=== PATIENT | male | born 1935 | race Caucasian/White ===

== ENCOUNTER 2021-06-19 08:46 | Inpatient (IN) | payer OTHER, BC ==
[~2021-06-19] VITALS: Ht 162.6 cm; Wt 104.0 kg
[2021-06-19 11:20] VITALS: BP 110/66
--- NOTE | 2021-06-19 11:35 | NUR ---
ADMIT: PT ARRIVED TO UNIT APPROX 0820 FROM [facility]. PT A&OX4, ON 2L VIA NC (BASELINE) AND UNABLE TO AMBULATE BY SELF/WC BOUND. PT HAD SMALL BLOOD CLOTS AND MODERATE AMOUNT OF BLOOD RESIDUE AROUND PENIS AREA. PT STATES PAIN, BUT TOLERABLE AT TIME OF ADMIT. VITAL SIGNS STABLE. THIS RN CONTACTED DAUGHTER KEV, BUT WAS UNABLE TO GET PT [place] ON PHONE. VERIFIED CONTACT NUMBER WITH [facility]. PER UROLOGY, ATTEMPT WILL NEED TO BE MADE BY NURSING STAFF TO PLACE COUDE CATH AND HAVE CYSTO CART UP TO UNIT.
--- NOTE | 2021-06-19 11:46 | EKG ---
[place] [address] [facility] [place] [place] [address] ELECTROCARDIOGRAM REPORT Name: YASMEEN FIELD Room #: 364-P ADM IN M.R.#: [id number] Admission: 06/19/21 Attend Phys: Jonatan Ramos MD Discharge: Date of : 39 Report #: [id number] [facility] Test Date: 2021-06-19 Test Time: 10:49:37 Pat Name: YASMEEN FIELD Department: Room: 364 P Gender: M Gas Dispatcher: FRANCISCA : 1935 Requested By: Cordelia De La Paz Order Number: [id number] MD: Harinder Mercer Measurements Intervals [place] Rate: 62 P: 44 UT: 172 QRS: 1 QRSD: 93 T: 8 QT: 485 QTc: 493 Interpretive Statements Sinus rhythm Abnormal R-wave progression, early transition Borderline prolonged QT interval Baseline wander in lead(s) V1,V5 No previous ECG available for comparison Electronically Signed On 06-19-2021 11:46:26 CDT by Harinder Mercer [email or web address] <ELECTRONICALLY SIGNED> By: Harinder Mercer MD, [facility] 06/19/21 1146 1049 1049 Harinder Mercer MD, FAC /EPI
[2021-06-19 12:21] LABS: ALBUMIN 2.7 g/dL (3.4-5.0); ANION GAP 12 mmol/L (7-16); BUN 26 mg/dL (7-18); CALCIUM 8.1 mg/dL (8.5-10.1); CHLORIDE 104 mmol/L (98-107); CHOLESTEROL 146 mg/dL (<200); CO2 23 mmol/L (21-32); CREATININE 1.9 mg/dL (0.7-1.3); GLUCOSE 88 mg/dL (74-106); HDL CHOLESTEROL 31 mg/dL (>40); LDL CHOLESTEROL 89 mg/dL (<100); POTASSIUM 4.5 mmol/L (3.5-5.1); SGOT 27 U/L (15-37); SGPT 13 U/L (30-65); SODIUM 139 mmol/L (136-145); TC:HDL 4.7 Ratio (Not establshd); TOTAL BILIRUBIN 0.8 mg/dL (0.2-1.0); TOTAL PROTEIN 6.2 g/dL (6.4-8.2); TRIGLYCERIDE 134 mg/dL (<150); VLDL 27 mg/dL (<40)
--- NOTE | 2021-06-19 13:13 | NUR ---
PER PHARMACY, WILL DC VANC DUE TO CREAT LEVEL.
[2021-06-19 13:51] LABS: URINE BILIRUBIN NEGATIVE (Negative); URINE BLOOD 3+ (Negative); URINE GLUCOSE-RANDOM* NEGATIVE (Negative); URINE KETONES NEGATIVE (Negative); URINE LEUKOCYTES-REFLEX TRACE (Negative); URINE NITRITE-REFLEX POSITIVE (Negative); URINE PROTEIN (DIPSTICK) 3+ (Negative); URINE SPECIFIC GRAVITY 1.015 (1.005-1.035); URINE UROBILINOGEN 0.2 E.U./dl (0.2-1.0)
[2021-06-19 13:52] LABS: URINE CLARITY CLOUDY; URINE COLOR RED
[2021-06-19 13:53] LABS: SQUAMOUS 0-3 Few /LPF (0-3)
[2021-06-19 13:54] LABS: BACTERIA-REFLEX None Seen /HPF (None Seen); CASTS None Seen /LPF (None Seen); CRYSTALS None Seen /LPF (None Seen); URINE RBC >20 Many /HPF (NONE SEEN); URINE WBC-REFLEX 0-5 Rare /HPF (0-5)
--- NOTE | 2021-06-19 15:45 | NUR ---
INITIAL ASSESSMENT: KATHERYN reviewed chart and spoke with nursing and attending physician. Pt was transferred to [facility] from [facility] for urology eval and treatment. Pt with hx neurogenic bladder. Pt had miller catheter replaced. Pt has been at [facility] [place] [address], [id number]. ( ). KATHERYN met with pt at bedside. Introduced role of SW. Pt is [facility]. Pt currently on O2. No weekend discharge planned. Pt gave consent for SW to contact his dtr, Herlinda. KATHERYN spoke with Herlinda, via phone ([phone]). Introduced role of KATHERYN. Herlinda lives in [place]. Herlinda's recently and has three small children at home. Herlinda is unable to come to at this time to assist. At this time, plan is for pt to return to [facility] when medically stable. Pt was living at home with his . Pt's might consider pt returning home with services. Pt's had concerns with pt returning home with HH for miller care. Pt was on O2 at home. No weekend discharge planned. KATHERYN is following to assist as needed with discharge planning.
[2021-06-19 16:27] VITALS: BP 130/69
[2021-06-19] MEDS ORDERED: AMLODIPINE BESY10 MG PO (16:36)
[2021-06-19] MEDS ORDERED: VAZALORE325 MG PO (16:37)
[2021-06-19] MEDS ORDERED: ATENOLOL 25 MG25 M1 PO (16:38)
[2021-06-19] MEDS ORDERED: DULCOLAX10 MG RECTAL (16:39)
[2021-06-19] MEDS ORDERED: EXPECTORAN100 MG/51 PO (16:41)
[2021-06-19] MEDS ORDERED: GLIMEPIRIDE1 MG PO (16:42)
[2021-06-19] MEDS ORDERED: IPRAT-ALBUT 0.5-3 ML INH (16:43)
[2021-06-19] MEDS ORDERED: LASIX 40 MG TAB40 MG PO (16:44)
[2021-06-19] MEDS ORDERED: PRINIVIL20 M1 PO (16:45)
[2021-06-19] MEDS ORDERED: MIRALAX119 GM PO (16:46)
[2021-06-19] MEDS ORDERED: MUSCLE RUB ULT114 GM TOP (16:46)
[2021-06-19] MEDS ORDERED: AFRIN15 ML NASAL (16:48)
[2021-06-19] MEDS ORDERED: CVS SENNA PLUS1 EACH PO (16:49)
[2021-06-19] MEDS ORDERED: OYSTER SHELL 51 EAC1 PO (16:49)
[2021-06-19] MEDS ORDERED: SYMBICORT160 MCG/4. INH (16:50)
[2021-06-19] MEDS ORDERED: TRAMADOL 50 MG50 MG PO (16:51)
[2021-06-19] MEDS ORDERED: ACETAMINOPHEN500 M1 PO (16:52)
[2021-06-19 20:19] VITALS: BP 123/51
[2021-06-19 23:46] VITALS: BP 119/61
[2021-06-20 03:04] LABS: ABSOLUTE NEUTROPHILS 16.1 thou/uL (1.4-8.2); BASOPHILS 0.3 % (0.0-2.0); HEMATOCRIT 30.1 % (42.0-52.0); HEMOGLOBIN 9.8 gm/dL (14.0-18.0); LYMPHOCYTES 4.5 % (24.0-44.0); MCH 28.9 pg (26.0-34.0); MCHC 32.5 g/dL (28.0-37.0); MONOCYTES 5.4 % (1.0-8.0); PLATELET COUNT 154 thou/uL (150-400); POLYS 89.8 % (36.0-66.0); RBC 3.39 mil/uL (4.50-6.00); RDW 13.4 % (10.5-14.5)
[2021-06-20 03:12] LABS: CALCIUM 7.8 mg/dL (8.5-10.1); CREATININE 1.9 mg/dL (0.7-1.3); MAGNESIUM 1.9 mg/dL (1.8-2.4); POTASSIUM 4.6 mmol/L (3.5-5.1)
[2021-06-20 05:05] VITALS: BP 125/70
[2021-06-20 07:27] VITALS: BP 126/61
--- NOTE | 2021-06-20 07:48 | NUR ---
PT A&OX2-3, PLEASANT AND COOPERATIVE THROUGHOUT THE SHIFT. TONG CATHETER IN PLACE, BLOOD-TINGED URINE NOTED AT OUTSET OF SHIFT. TONG FLUSHED FRQUENTLY THROUGHOUT THE SHIFT, BY 0600 URINE NOTED TO BE CLEAR MARTINE. WCTM
[2021-06-20 11:44] VITALS: BP 112/44
--- NOTE | 2021-06-20 12:55 | NUR ---
WAS NOTIFIED BY GREY FENTON THAT DR. RICE WAS WANTING TO DC PT TO [facility] AND READING [facility] CHAY'S NOTES THERE HAS BEEN NO REFERRAL FAXED TO THE FACILITY TO SEE IF PT QUALIFIES TO GO BACK. TOLD GREY THAT ON TUESDAY CHAY CAN SPEAK WITH THE PT'S FAMILY AND SEE IF THEY ARE OK WITH PT GOING HOME WITH HH AND NEED TO SEE WHAT HH COVERS [facility]. OR IF PT QUALIFIES TO GO BACK TO [facility].
[2021-06-20 15:21] VITALS: BP 124/60
--- NOTE | 2021-06-20 19:08 | NUR ---
ASSESSMENT CHARTED. PT ALERT AND ORINETED. PLEASANT AND COOPERATIVE WITH CARES. DENIED HAVING PAIN OR DISCOMFORT. EVALUATED BY PHYSICAL THERAPIST. UP IN THE CHAIR THIS SHIFT. PLAN TO BE DISCHARGE BACK TO REHAB IN AM. NO CONCERNS AT THIS TIME.
[2021-06-20 21:27] VITALS: BP 141/65
[2021-06-21 05:39] VITALS: BP 151/75
--- NOTE | 2021-06-21 06:39 | NUR ---
ASSUMED CARE OF PT AT 1900. PT ASSESSED TO BE 86 Y.O. MALE AOX4 ON 2L O2 BASELINE. THROUGHOUT THE NIGHT PT RESTED IN ROOM QUIETLY WITH NO COMPLAINTS, VSS. EARLY IN EVENING GOT A CT ABDOMEN THEAT SHOWS SOME POSSIBLE CHOLECYSTITIS/DIVERTICULITIS. PT VERBALIZED NO PAIN THROUGHOUT THE NIGHT AND IS ABLE TO TRANSFER TO WHEELCHAIR X1 STAND PIVOT. MONITORING BLOOD SUGAR FOR DIABETES AND STEROIDS, BUT NO INSULIN ORDERED--WILL BRING UP TO DAY SHIFT RN TO CHECK ON. PT IS EXTREMELY HARD OF HEARING. RESTING IN ROOM QUIETLY, WILL CONT TO MONITOR.
[2021-06-21 07:48] VITALS: BP 142/57
[2021-06-21 11:41] VITALS: BP 125/55
[2021-06-21 12:07] LABS: HEMATOCRIT 31.5 % (42.0-52.0); HEMOGLOBIN 10.2 gm/dL (14.0-18.0); MCH 28.8 pg (26.0-34.0); MCHC 32.4 g/dL (28.0-37.0); MCV 88.8 fL (80.0-100.0); RBC 3.55 mil/uL (4.50-6.00); RDW 13.1 % (10.5-14.5); WBC 14.4 thou/uL (4.0-11.0)
[2021-06-21 12:18] LABS: CALCIUM 7.9 mg/dL (8.5-10.1); CREATININE 1.6 mg/dL (0.7-1.3); MAGNESIUM 2.4 mg/dL (1.8-2.4)
--- NOTE | 2021-06-21 15:49 | NUR ---
PT ALERT AND ORIENTED TIMES THREE. PT CLAM AND PLEASANT THIS MORNING, BUT VERY AGITATED THIS AFTERNOON AFTER BEING TOLD HE WOULD NOT BE DISCHARING TODAY. VSS, TONG TO DD. PT DENIES PAIN. PT TOLERATES MEDS AND MEALS. PT DID SIT IN THE CHAIR THIS AFTERNOON. SPOKE WITH PT TODAY TO UPDATE ON PT CARE. WILL CONTINUE TO MONITOR.
[2021-06-21 16:44] VITALS: BP 130/54
[2021-06-21 19:39] VITALS: BP 125/60
--- NOTE | 2021-06-21 21:30 | 2DMMODE ---
[facility] [place] [address] 2 D/M-MODE ECHOCARDIOGRAM Name: YASMEEN FIELD Room #: 364-P ADM IN M.R.#: [id number] Admission: 06/19/21 Attend Phys: Jonatan Ramos MD Discharge: Date of : 39 Report #: [id number] THIS REPORT FOR: cc: Samantha Dailey MD, Martha M. MD Mancuso, Gerald M. MD [facility] ~ APPROVED REPORT Study performed: 06/20/2021 11:04:56 EXAM: Comprehensive 2D, Doppler, and color-flow Echocardiogram Patient Location: In-Patient Room #: 364 Status: routine BSA: 2.04 HR: 88 bpm BP: 126/61 mmHg Rhythm: NSR Other Information Study Quality: Fair Indications COPD Diabetes Dyspnea Hypertension/HDD 2D Dimensions IVSd: 11.62 (7-11mm) LVOT Diam: 20.25 (18-24mm) LVDd: 42.98 mm PWd: 10.52 (7-11mm) Ascending Ao: 36.06 (22-36mm) LVDs: 31.80 (25-40mm) Left Atrium: 31.55 (27-40mm) Aortic Root: 34.38 mm Volumes Left Atrial Volume (Systole) Single Plane 4CH: 68.84 mL Single Plane 2CH: 31.31 mL Biplane LA Volume: 52.00 mL LA ESV Index: 25.00 mL/m2 Aortic Valve AoV Peak Wilman.: 2.14 m/s AO Peak Gr.: 4.20 mmHg LVOT Max P.93 mmHg [facility] [address] [place] [address] 2 D/M-MODE ECHOCARDIOGRAM Name: ANITA FIELDPH Room #: 364-P [facility] IN ..#: [id number] Admission: 06/19/21 Attend Phys: Jonatan Ramos MD Discharge: Date of : 39 Report #: [id number] AO Mean Gr.: 9.12 mmHg LVOT Mean P.94 mmHg AO V2 Mean: 1.38 m/s LVOT Max V: 0.99 m/s AO V2 VTI: 43.83 cm LVOT Mean V: 0.63 m/s RENETTA (VTI): 1.62 cm2 LVOT V1 VTI: 21.99 cm RENETTA Vmax: 1.49 cm2 SV (LVOT): 70.80 mL Mitral Valve E/A Ratio: 0.8 MV Decel. Time: 1623.33 ms MV E Max Wilman.: 0.46 m/s MV A Wilman.: 0.61 m/s MV PHT: 470.77 ms IVRT: 124.57 ms Pulmonary Valve PV Peak Wilman.: 1.14 m/s PV Peak Gr.: 5.17 mmHg Pulmonary Vein P Vein S: 0.55 m/s P Vein A: 0.34 m/s P Vein D: 0.32 m/s P Vein A Dur.: 133.8 msec P Vein S/D Ratio: 1.72 Tricuspid Valve TR Peak Wilman.: 2.12 m/s RAP Estimate: 7.00 mmHg TR Peak Gr.: 17.95 mmHg RVSP: 25.00 mmHg Left Ventricle The left ventricle is normal size. There is normal LV segmental wall motion. There is normal left ventricular wall thickness. Left ventricular systolic function is normal. The left ventricular ejection fraction is within the normal range. LVEF is 50-55%. Transmitral Doppler flow pattern suggests impaired LV relaxation. Right Ventricle Right ventricle is dilated. The right ventricular systolic function is normal. Atria The left atrium size is normal. The right atrium size is normal. Aortic Valve The Aortic valve is sclerotic. No aortic regurgitation is present. There is no aortic valvular stenosis. [facility] [address] [place] [address] 2 D/M-MODE ECHOCARDIOGRAM Name: YASMEEN FIELD Room #: 364-P [facility] IN .R.#: [id number] Admission: 06/19/21 Attend Phys: Jonatan Ramos MD Discharge: Date of : 39 Report #: [id number] Mitral Valve The mitral valve is normal in structure. There is no mitral valve regurgitation noted. No evidence of mitral valve stenosis. Tricuspid Valve The tricuspid valve is normal in structure. Trace to mild tricuspid regurgitation. PAP 25 mmHg Pulmonic Valve The pulmonary valve is normal in structure. There is no pulmonic valvular regurgitation. Great Vessels The aortic root is normal in size. The ascending aorta is mildly dilated. 3.6 cm IVC is normal in size and collapses >50% with inspiration. Pericardium There is no pericardial effusion. There is no pleural effusion. <Conclusion> The left ventricle is normal size. LVEF is 50-55%. Transmitral Doppler flow pattern suggests impaired LV relaxation. Right ventricle is dilated. The left atrium size is normal. The Aortic valve is sclerotic. There is no aortic valvular stenosis. There is no mitral valve regurgitation noted. Trace to mild tricuspid regurgitation. PAP 25 mmHg The aortic root is normal in size. The ascending aorta is mildly dilated. 3.6 cm There is no pericardial effusion. <ELECTRONICALLY SIGNED> By: Tawanda Abbott MD, FACC 06/21/212128 28 28 Tawanda Abbott MD, FACC /INF
[2021-06-22] VITALS (7 sets, daily range): BP systolic 123–160; BP diastolic 58–119
[2021-06-22 03:17] LABS: HEMATOCRIT 30.9 % (42.0-52.0); HEMOGLOBIN 10.2 gm/dL (14.0-18.0); MCH 29.4 pg (26.0-34.0); RBC 3.47 mil/uL (4.50-6.00); WBC 10.9 thou/uL (4.0-11.0)
[2021-06-22 03:30] LABS: CALCIUM 7.7 mg/dL (8.5-10.1); CREATININE 1.6 mg/dL (0.7-1.3); MAGNESIUM 2.5 mg/dL (1.8-2.4); POTASSIUM 3.9 mmol/L (3.5-5.1)
--- NOTE | 2021-06-22 06:22 | NUR ---
PT ALERT AND ORIENTED X 4. CURRENTLY 2L O2 NC. VITAL SIGNS STABLE OVERNIGHT. NO C/O OF PAIN. D/C LEFT WRIST IV AND STARTED LEFT HAND 22G IV. ALYCIA TO MARY. THIS RN WAS NOTIFIED OF LABS THAT NEEDED TO BE FAXED FROM [facility]. LABS WERE IN THE PT'S CHART AND NO LONGER NEED TO BE FAXED. WILL NOTIFY DAY RN.
--- NOTE | 2021-06-22 13:45 | NUR ---
KATHERYN reviewed chart and spoke with nursing and attending physician. Pt is progressing towards goals for discharge. Pt is on 2L of O2 and on IV abx. KATHERYN faxed clinical/therapy into to [facility] for review. Spoke with Miguel in admissions, who states they will bring pt back using his skilled benefit if he has skilled days available. Awaiting input regarding abx. Pt's WBC has been elevated. [facility] is able to arrange transportation when pt is discharged. KATHERYN spoke with pt's , Renetta and dtr, Herlinda, to provide update and discuss discharge plan. Plan is for pt to return to [facility]. Pt's dtr is hoping to do a virtual visit with pt this afternoon. KATHERYN updated pt's nurse. KATHERYN is following to assist as needed with discharge planning.
--- NOTE | 2021-06-22 18:40 | NUR ---
ASSUMED PATIENT CARE AT 0700. A/O X4. ON 4L/NC. MAX ASSITED TO CHAIR. SLOWLY TOWARDS POC GOALS.
[2021-06-23 03:45] VITALS: BP 152/83
[2021-06-23 05:41] LABS: HEMATOCRIT 31.7 % (42.0-52.0); HEMOGLOBIN 10.4 gm/dL (14.0-18.0); MCH 29.3 pg (26.0-34.0); MCHC 32.9 g/dL (28.0-37.0); MCV 89.1 fL (80.0-100.0); RBC 3.56 mil/uL (4.50-6.00); RDW 13.6 % (10.5-14.5); WBC 10.6 thou/uL (4.0-11.0)
[2021-06-23 05:45] LABS: CALCIUM 7.6 mg/dL (8.5-10.1); CREATININE 1.3 mg/dL (0.7-1.3); MAGNESIUM 2.5 mg/dL (1.8-2.4); POTASSIUM 4.2 mmol/L (3.5-5.1)
--- NOTE | 2021-06-23 05:48 | NUR ---
Up in the recliner chair watching TV at . Assisted back to bed using gait belt and walker. Bed alarm on for safety. Denies any chest pain/discomfort. Maintaining O2 sat in the mid to upper 90's on 2L/NC. He does get short of breath with exertion. No hematuria , miller had 800 ml of clear yellow urine. He stated he slept well during the night. Making some progress towards care plan goals.
[2021-06-23 08:13] VITALS: BP 130/58
[2021-06-23 09:08] VITALS: BP 138/58
--- NOTE | 2021-06-23 11:43 | NUR ---
DISCHARGE NOTE: KATHERYN reviewed chart and spoke with nursing and attending physician. Pt is medically stable for discharge back to [facility] today. KATHERYN faxed clinical/therapy updates to the facility for review. KATHERYN left voice message for Miguel in admissions to notify of pt's discharge. Facility to arrange w/c van transportation. Chart copy requested. Awiating final discharge ppwk at this time. KATHERYN is following to finalize discharge plan.
[2021-06-23] MEDS ORDERED: LINEZOLID600 MG PO (12:27)
[2021-06-23] MEDS ORDERED: CEFPODOXIME PR200 M1 PO (12:27)
--- NOTE | 2021-06-23 15:26 | NUR ---
Patient is alert and oriented x4 this shift. He has even and unlabored respirations. Patient has voiced multiple times this shift that he is ready to go home. Patient will D/C from the facility on room air and with a miller catheter. Patients IV was discontinued at approximately 1440. Patient has all of his belongings packed and ready for discharge.
--- NOTE | 2021-06-23 16:10 | NUR ---
Patient is alert and oriented x4. His respirations are even and unlabored. He is of appropriate color for his ethnicity. Patient is on room air. Patient is up ad norma with a gait belt and walker. Patient will be discharged from the facility with a miller catheter. Report was called to [facility] @1606 and this RN spoke with nurse Russell. Patients belongings are packed and with patient. Patient is currently waiting for transport from hospital to [facility].
--- NOTE | 2021-06-23 17:03 | NUR ---
Patient is being discharged from the facility via transport servies. All belongings are with patient. Report was already called to facility.
== END 2021-06-23 17:16 | DRG 871 ==
LOC: 3W 08:46
PROVIDERS: Internal Medicine; Nurse Practitioner; ADMIT Hospitalist; ATTEND Hospitalist
PROC: 0T9B70Z Drainage of Bladder with Drainage Device, Via Natural or Artificial Opening (ICD-10-PCS; principal; 2021-06-19)
DX: A41.50 Gram-negative sepsis, unspecified (principal); I21.4 Non-ST elevation (NSTEMI) myocardial infarction; N17.9 Acute kidney failure, unspecified; I50.30 Unspecified diastolic (congestive) heart failure; J44.1 Chronic obstructive pulmonary disease with (acute) exacerbation; E44.0 Moderate protein-calorie malnutrition; I13.0 Hypertensive heart and chronic kidney disease with heart failure and stage 1 through stage 4 chronic kidney disease, or unspecified chronic kidney disease; R31.9 Hematuria, unspecified; E78.5 Hyperlipidemia, unspecified; J45.909 Unspecified asthma, uncomplicated; R33.9 Retention of urine, unspecified; N32.9 Bladder disorder, unspecified; N18.9 Chronic kidney disease, unspecified; R53.81 Other malaise; E11.22 Type 2 diabetes mellitus with diabetic chronic kidney disease; E66.9 Obesity, unspecified; Z66 Do not resuscitate; G89.29 Other chronic pain; M54.9 Dorsalgia, unspecified; R31.0 Gross hematuria; E78.00 Pure hypercholesterolemia, unspecified; K59.00 Constipation, unspecified; Z20.822 Contact with and (suspected) exposure to COVID-19; Z88.6 Allergy status to analgesic agent; Z88.0 Allergy status to penicillin; Z88.8 Allergy status to other drugs, medicaments and biological substances; Z68.39 Body mass index [BMI] 39.0-39.9, adult
CPT/HCPCS: 10879